=== PATIENT | female | born 1975 | race Caucasian/White ===

== ENCOUNTER 2024-02-25 08:00 | Outpatient (CLI) | payer BC ==
[2024-02-26 16:35] LABS: CHLAMYDIA TRACHOMATIS DNA NEGATIVE (NEGATIVE); NEISSERIA GONORRHOEAE DNA NEGATIVE (NEGATIVE)
[2024-02-26 16:52] LABS: BACTERIAL VAGINOSIS DNA NEGATIVE (NEGATIVE); CANDIDA GLABRATA DNA NEGATIVE (NEGATIVE); CANDIDA GROUP DNA NEGATIVE (NEGATIVE); CANDIDA KRUSEI DNA NEGATIVE (NEGATIVE); TRICHOMONAS VAGINALIS DNA NEGATIVE (NEGATIVE)
== END 2024-02-25 08:01 | disposition home or self-care (01) ==
LOC: LAB.WC 08:00
PROVIDERS: ATTEND Obstetrics & Gynecology
DX: N89.8 Other specified noninflammatory disorders of vagina (principal); Z11.3 Encounter for screening for infections with a predominantly sexual mode of transmission
CPT/HCPCS: 81514; 87491; 87591; 87661

== ENCOUNTER 2024-02-25 15:45 | Outpatient (CLI) | payer BC ==
[2024-02-25 16:32] LABS: THYROID STIMULATING HORMONE 1.02 uIU/mL (0.34-5.60)
[2024-02-25 21:37] LABS: ESTIMATED AVERAGE GLUCOSE 97 mg/dL (70-100)
[2024-02-26 04:09] LABS: HIV SCREEN 4TH GENERATION Non Reactive (Non Reactive)
[2024-02-26 06:11] LABS: RPR Non Reactive (Non Reactive)
[2024-02-26 08:11] LABS: HSV 1 IGG TYPE SPEC <0.91 index (0.00-0.90); HSV 2 IGG TYPE SPEC <0.91 index (0.00-0.90)
[2024-02-27 06:10] LABS: HCV AB Non Reactive (Non Reactive)
== END 2024-02-25 15:46 | disposition home or self-care (01) ==
LOC: LAB 15:45
PROVIDERS: ATTEND Obstetrics & Gynecology
DX: E03.9 Hypothyroidism, unspecified (principal); Z13.1 Encounter for screening for diabetes mellitus; Z11.3 Encounter for screening for infections with a predominantly sexual mode of transmission; N89.8 Other specified noninflammatory disorders of vagina
CPT/HCPCS: 36415; 81514; 83036; 84443; 86592; 86695; 86696; 86803; 87389; 87491; 87591; 87661